=== PATIENT | female | born 2000 | race Caucasian/White ===

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

== ENCOUNTER 2022-01-30 18:58 | Emergency (ER) | payer MEDICAID, SELFPAY ==
--- NOTE | ~2022-01-30 | US_ITS ---
EXAMINATION: US OBSTETRICAL ULTRASOUND CLINICAL INFORMATION: Vaginal bleeding with clots, quantitative hCG 01/30/2022, 1072 COMPARISON: None. LMP: 12/02/2021. Gestational age by maternal dates is 8 weeks, 3 days. Estimated date of delivery by maternal dates is 09/08/2022. TECHNIQUE: Multiple 2-D grayscale and Doppler ultrasound images of the pelvis were obtained. FINDINGS: Uterus: Anteverted, mildly retroflexed measuring 7.0 x 3.5 x 4.6 cm. Somewhat arcuate appearance. The endometrial stripe measures up to 0.6 cm at the level the body with homogeneous echotexture and no focal abnormality. No intrauterine gestation is identified. The cervix is closed measuring up to 3.0 cm in length without focal abnormality. Mild to moderate free fluid in the cul-de-sac. Right ovary: 3.4 x 2.5 x 2.0 cm. Several small anechoic follicles are seen. No right adnexal abnormality. Left ovary: 3.5 x 2.4 x 2.5 cm with a volume of 11 mL multiple small anechoic follicles are seen. Color Doppler showed no abnormal vascular flow. In the left adnexa between the uterus and left ovary is an ovoid homogeneous echogenic focus measuring approximately 1.4 x 1.1 x 1.2 cm. No central gestational sac is identified. Color Doppler showed no associated internal hypervascularity. US/US OB pelvic and transvaginal IMPRESSION: 1. No intrauterine gestation identified. No products of conception or hemorrhage is seen within the endometrium or cervix. 2. Small homogeneous echogenic focus in the left adnexa is nonspecific. No associated central gestational sac or hypervascularity is seen making early ectopic gestation less likely, but not completely excluded given the beta-hCG levels and lack of intrauterine gestation. Continued monitoring of beta-hCG levels is recommended along with short-term repeat pelvic ultrasound as recommended to assess for change.
[2022-01-30 19:02] VITALS: BP 126/73; PULSE 80; RESP 18; TEMP 37.3; O2SAT 100; BMI 22.6
[2022-01-30 19:21] LABS: Basophils Percent Auto 0.2 % (0-2); Eosinophils Percent Auto 0.2 % (0-4); Hematocrit 35.2 % (37.0-47.0); Hemoglobin 11.1 g/dl (12.0-16.0); Imm Gran Abs Auto 0.04 X10*3/uL (0.00-0.03); Imm Gran Pct Auto 0.3 % (0.0-0.4); Lymphocytes Absolute Auto 2.1 X10*3/uL (1.2-4.9); Lymphocytes Percent Auto 16.4 % (20-40); MANUAL DIFF FLAG NO; Mean Corpuscular HGB Conc 31.5 g/dl (31.0-35.0); Mean Corpuscular Hemoglobin 24.9 pg (27.0-33.0); Mean Corpuscular Volume 79.1 fL (80.0-98.0); Monocytes Absolute Auto 0.4 X10*3/uL (0.1-1.2); Monocytes Percent Auto 2.9 % (2-11); Neutrophils Absolute Auto 10.1 x10*3/uL (2.0-8.3); Platelet Count 252 X10*3/uL (160-400); Red Blood Count 4.45 X10*6/uL (4.20-5.50); Red Cell Distribution Width 16.5 % (11.0-16.0); White Blood Count 12.6 X10*3/uL (4.8-10.8)
[2022-01-30 19:44] LABS: HCG Quantitative 1072 mIU/mL
[2022-01-30 19:46] LABS: Appearance Urine Clear; Color Urine Yellow; Glucose Urine UA 100 mg/dL (Negative); Leukocyte Esterase Urine Negative (Negative); Nitrite Urine Negative (Negative); PH 7.5 (5.0-9.0); UMIC TRIGGER UA YES; Urine Blood Small (1+) (Negative); Urine Ketones Negative (Negative); Urine Protein Negative (Neg-Trace)
[2022-01-30 19:50] LABS: UPreg QC Valid YES; Urine Pregnancy POSITIVE (NEGATIVE)
[2022-01-30 20:01] LABS: Bacteria Urine Trace (None Seen); Hyaline Casts Urine 0-2 /LPF (0-2); RBC Urine 0-2 /HPF (0-2); WBC Urine 0-5 /HPF (0-5)
[2022-01-30 22:25] LABS: INTERNATIONAL NORM RATIO 1.1 (0.9-1.1); Prothrombin Time 13.2 SEC (10.0-13.1)
[2022-01-30 22:36] LABS: Alanine Aminotransferase 11 U/L (0-31); Albumin Level 4.5 g/dL (3.5-5.0); Alkaline Phosphatase 63 U/L (39-117); Anion Gap 16 (12-20); Aspartate Amino Transferase 14 U/L (5-31); Bilirubin Total 0.3 mg/dL (0.0-1.0); Blood Urea Nitrogen 10 mg/dL (9-16); Calcium 9.5 mg/dL (8.4-10.2); Carbon Dioxide 23 mmol/L (22-29); Chloride 106 mmol/L (96-108); Creatinine Clr Calc Pharmacy 105.7; Estimated Glomerular Filt Rate > 60; Glucose Random 92 mg/dL (60-115); Potassium 4.2 mmol/L (3.3-5.1); Sodium 141 mmol/L (135-145); Total Protein 7.9 g/dL (6.5-8.0)
--- NOTE | 2022-01-30 23:19 | PC.NURSE ---
BIANCA upgraded from a 3 to a 2 per PA reports of ectopic confirmed on US. Pt brought back from waiting room.
--- NOTE | 2022-01-30 23:34 | ED.GENADULT ---
HPI - General Adult General Chief complaint: Vaginal Bleeding Stated complaint: loss of , bleeding. 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 Patient was seen recently in different hospital and she was told she miscarriaging, patient stated that her vaginal bleeding is fluctuating from light to heavy bleeding with severe pelvic pain that started today, patient declined any history of STD. No history of ectopic . No care for this yet. Related Data Previous Rx's Medication Instructions Recorded clotrimazole 1 % topical cream 1 applic topical BID tinea 4 weeks 03/07/20 #30 grams Allergies Allergy/AdvReac Type Severity Reaction Status Date / Time ampicillin [AMPICILLIN] Allergy Unknown UNKNOWN Verified 03/07/20 19:17 Review of Systems Review of Systems: All other systems are reviewed and are negative Constitutional: Reports as per HPI and Reports no additional constitutional complaints Eyes: Reports as per HPI and Reports no additional eye complaints Reports system reviewed and no additional complaints, except as documented Cardiovascular: Reports as per HPI and Reports no additional cardiovascular complaints Respiratory: Reports as per HPI and Reports no additional respiratory complaints Gastrointestinal: Reports as per HPI and Reports no additional gastrointestinal complaints Genitourinary: Reports no additional female genitourinary complaints Musculoskeletal: Reports no additional musculoskeletal complaints Skin/Breast: Reports system reviewed and no additional complaints, except as docu Psychiatric: Reports no additional psychiatric complaints Endocrine: Reports no additional endocrine complaints Hematologic/Lymphatic: Reports no additional hematologic/lymphatic complaints Allergic/Immunologic: Reports no additional allergic/immunologic complaints Reports system reviewed and no additional complaints, except as documented and Reports Abnormal speech present [facility] Past Medical History Medical History Asthma Social History Social History Alcohol intake: never Advance Directives: No Advance Directives Information Provided: No Physical Exam ED Vital Signs: Vital Signs - 24 hr 01/30/22 19:02 01/31/22 00:33 Temperature 99.1 F 98.4 F Pulse Rate 80 88 Respiratory Rate 18 18 Blood Pressure 126/73 116/63 Pulse Oximetry 100 100 Oxygen Delivery Method Room Air Room Air BMI result Body Mass Index 22.6 Vital signs have been reviewed as appeared to be correct. Blood pressure normal. Heart rate normal. Respiration rate normal. Temperature normal. Oxygen saturation normal. Appearance: Alert. Oriented X3. No acute distress. Head: Normal external exam. Normocephalic. Atraumatic. No Martinez signs noted. No raccoon eyes noted Eyes: PERRLA. EOMI. Conjunctiva and sclera normal. Eyelids normal. ENT: TM's Normal. Pharynx normal. Uvula midline. Moist mucous membranes. No trismus noted. No drooling noted. No muffled voice noted. Neck: Normal inspection. Neck supple. FROM. No adenopathy. Thyroid Normal. No meningeal signs. No neck mass noted. CVS: Normal heart rate and rhythm. Heart sound normal. No murmurs noted. Pulses normal throughout. Respiratory: No respiratory distress. Painless inspiration. Breath sounds normal. No wheezes/rales/rhonchi noted. Chest nontender. No accessory muscle usage noted or decreased air movement noted. Abdomen: Soft and nontender. Bowel sounds normal in all 4 quadrants. No distention noted. No organomegaly noted. No visible injury noted. Pelvic exam: Deferred for Dr. Garcia Back: No CVA tenderness. Full range of motion noted. Skin: Skin warm and dry. Normal skin color. Normal skin turgor. No rashes/lesions/lacerations noted. Extremities: No lower extremity edema. Extremities exhibit normal range of motion. Extremities nontender. Neuro: Oriented X 3. Cranial nerve exam: II-XII are grossly intact No motor deficit. No sensory deficit. Reflexes normal. Course Course Course Narrative: 21-year-old female about 6 weeks evaluated for vaginal bleeding and pelvic pain, low HCG ultrasound showed no IUP with a vascular left adnexal mass which raised the suspicion of ectopic the case discussed with Dr. Garcia who examined the patient. Patient will follow-up with Dr. Garcia in 2 days for repeat hCG and repeat ultrasound as per Dr. Garcia. Patient is O positive blood type. Medical Decision Making Lab Data Lab results reviewed: Yes I reviewed the patient's lab results. Result diagrams: 01/30/22 19:15 01/30/22 22:11 Labs: Lab Results 01/30/22 01/30/22 01/30/22 Range/Units 19:15 19:15 19:15 WBC 12.6 H (4.8-10.8) X10*3/uL RBC 4.45 (4.20-5.50) X10*6/uL Hgb 11.1 L (12.0-16.0) g/dl Hct 35.2 L (37.0-47.0) % MCV 79.1 L (80.0-98.0) fL MCH 24.9 L (27.0-33.0) pg MCHC 31.5 (31.0-35.0) g/dl RDW 16.5 H (11.0-16.0) % Plt Count 252 (160-400) X10*3/uL MPV 10.0 (9.4-12.3) fL Immature Gran % (Auto) 0.3 (0.0-0.4) % Neut % (Auto) 80.0 H (45-73) % Lymph % (Auto) 16.4 L (20-40) % [place] % (Auto) 2.9 (2-11) % Eos % (Auto) 0.2 (0-4) % Baso % (Auto) 0.2 (0-2) % Lymph # (Auto) 2.1 (1.2-4.9) X10*3/uL [place] # (Auto) 0.4 (0.1-1.2) X10*3/uL Eos # (Auto) 0.0 (0.0-0.4) X10*3/uL Baso # (Auto) 0.0 (0.0-0.2) X10*3/uL Abs Immat Gran (auto) 0.04 H (0.00-0.03) X10*3/uL Absolute Neuts (auto) 10.1 H (2.0-8.3) x10*3/uL Absolute Nucleated RBC 0.000 (0.0-0.012) X10*3/uL Nucleated RBC % (auto) 0.0 (0.0-0.2) /100WBC PT (10.0-13.1) SEC INR (0.9-1.1) Sodium (135-145) mmol/L Potassium (3.3-5.1) mmol/L Chloride (96-108) mmol/L Carbon Dioxide (22-29) mmol/L Anion Gap (12-20) BUN (9-16) mg/dL Creatinine (0.5-1.4) mg/dL Estim Creat Clear Calc Estimated GFR Random Glucose (60-115) mg/dL Calcium (8.4-10.2) mg/dL Total Bilirubin (0.0-1.0) mg/dL AST (5-31) U/L ALT (0-31) U/L Alkaline Phosphatase (39-117) U/L Total Protein (6.5-8.0) g/dL Albumin (3.5-5.0) g/dL Beta HCG, Quant 1072 mIU/mL Urine Color Urine Appearance Urine pH (5.0-9.0) Ur Specific [place] (1.005-1.025) Urine Protein (Neg-Trace) mg/dL Urine Glucose (UA) (Negative) mg/dL Urine Ketones (Negative) mg/dL Urine Blood (Negative) Urine Nitrite (Negative) Ur Leukocyte Esterase (Negative) Urine RBC (0-2) /HPF Urine WBC (0-5) /HPF Ur Squamous Epith Cells (0-2) /HPF Urine Bacteria (None Seen) Hyaline Casts (0-2) /LPF Urine Test (NEGATIVE) Blood Type O Positive 01/30/22 01/30/22 01/30/22 Range/Units 19:21 19:21 22:11 WBC (4.8-10.8) X10*3/uL RBC (4.20-5.50) X10*6/uL Hgb (12.0-16.0) g/dl Hct (37.0-47.0) % MCV (80.0-98.0) fL MCH (27.0-33.0) pg MCHC (31.0-35.0) g/dl RDW (11.0-16.0) % Plt Count (160-400) X10*3/uL MPV (9.4-12.3) fL Immature Gran % (Auto) (0.0-0.4) % Neut % (Auto) (45-73) % Lymph % (Auto) (20-40) % [place] % (Auto) (2-11) % Eos % (Auto) (0-4) % Baso % (Auto) (0-2) % Lymph # (Auto) (1.2-4.9) X10*3/uL [place] # (Auto) (0.1-1.2) X10*3/uL Eos # (Auto) (0.0-0.4) X10*3/uL Baso # (Auto) (0.0-0.2) X10*3/uL Abs Immat Gran (auto) (0.00-0.03) X10*3/uL Absolute Neuts (auto) (2.0-8.3) x10*3/uL Absolute Nucleated RBC (0.0-0.012) X10*3/uL Nucleated RBC % (auto) (0.0-0.2) /100WBC PT 13.2 H (10.0-13.1) SEC INR 1.1 (0.9-1.1) Sodium (135-145) mmol/L Potassium (3.3-5.1) mmol/L Chloride (96-108) mmol/L Carbon Dioxide (22-29) mmol/L Anion Gap (12-20) BUN (9-16) mg/dL Creatinine (0.5-1.4) mg/dL Estim Creat Clear Calc Estimated GFR Random Glucose (60-115) mg/dL Calcium (8.4-10.2) mg/dL Total Bilirubin (0.0-1.0) mg/dL AST (5-31) U/L ALT (0-31) U/L Alkaline Phosphatase (39-117) U/L Total Protein (6.5-8.0) g/dL Albumin (3.5-5.0) g/dL Beta HCG, Quant mIU/mL Urine Color Yellow Urine Appearance Clear Urine pH 7.5 (5.0-9.0) Ur Specific [place] 1.010 (1.005-1.025) Urine Protein Negative (Neg-Trace) mg/dL Urine Glucose (UA) 100 H (Negative) mg/dL Urine Ketones Negative (Negative) mg/dL Urine Blood Small (1+) H (Negative) Urine Nitrite Negative (Negative) Ur Leukocyte Esterase Negative (Negative) Urine RBC 0-2 (0-2) /HPF Urine WBC 0-5 (0-5) /HPF Ur Squamous Epith Cells 3-5 (0-2) /HPF Urine Bacteria Trace (None Seen) Hyaline Casts 0-2 (0-2) /LPF Urine Test POSITIVE H (NEGATIVE) Blood Type 01/30/22 Range/Units 22:11 WBC (4.8-10.8) X10*3/uL RBC (4.20-5.50) X10*6/uL Hgb (12.0-16.0) g/dl Hct (37.0-47.0) % MCV (80.0-98.0) fL MCH (27.0-33.0) pg MCHC (31.0-35.0) g/dl RDW (11.0-16.0) % Plt Count (160-400) X10*3/uL MPV (9.4-12.3) fL Immature Gran % (Auto) (0.0-0.4) % Neut % (Auto) (45-73) % Lymph % (Auto) (20-40) % [place] % (Auto) (2-11) % Eos % (Auto) (0-4) % Baso % (Auto) (0-2) % Lymph # (Auto) (1.2-4.9) X10*3/uL [place] # (Auto) (0.1-1.2) X10*3/uL Eos # (Auto) (0.0-0.4) X10*3/uL Baso # (Auto) (0.0-0.2) X10*3/uL Abs Immat Gran (auto) (0.00-0.03) X10*3/uL Absolute Neuts (auto) (2.0-8.3) x10*3/uL Absolute Nucleated RBC (0.0-0.012) X10*3/uL Nucleated RBC % (auto) (0.0-0.2) /100WBC PT (10.0-13.1) SEC INR (0.9-1.1) Sodium 141 (135-145) mmol/L Potassium 4.2 (3.3-5.1) mmol/L Chloride 106 (96-108) mmol/L Carbon Dioxide 23 (22-29) mmol/L Anion Gap 16 (12-20) BUN 10 (9-16) mg/dL Creatinine 0.77 (0.5-1.4) mg/dL Estim Creat Clear Calc 105.7 Estimated GFR > 60 Random Glucose 92 (60-115) mg/dL Calcium 9.5 (8.4-10.2) mg/dL Total Bilirubin 0.3 (0.0-1.0) mg/dL AST 14 (5-31) U/L ALT 11 (0-31) U/L Alkaline Phosphatase 63 (39-117) U/L Total Protein 7.9 (6.5-8.0) g/dL Albumin 4.5 (3.5-5.0) g/dL Beta HCG, Quant mIU/mL Urine Color Urine Appearance Urine pH (5.0-9.0) Ur Specific [place] (1.005-1.025) Urine Protein (Neg-Trace) mg/dL Urine Glucose (UA) (Negative) mg/dL Urine Ketones (Negative) mg/dL Urine Blood (Negative) Urine Nitrite (Negative) Ur Leukocyte Esterase (Negative) Urine RBC (0-2) /HPF Urine WBC (0-5) /HPF Ur Squamous Epith Cells (0-2) /HPF Urine Bacteria (None Seen) Hyaline Casts (0-2) /LPF Urine Test (NEGATIVE) Blood Type Imaging Data pelvic us: Attestation: I personally reviewed and interpreted this imaging study as follows: Radiologist's impression: 1. No intrauterine gestation identified. No products of conception or hemorrhage is seen within the endometrium or cervix. 2. Small homogeneous echogenic focus in the left adnexa is nonspecific. No associated central gestational sac or hypervascularity is seen making early ectopic gestation less likely, but not completely excluded given the beta-hCG levels and lack of intrauterine gestation. Continued monitoring of beta-hCG levels is recommended along with short-term repeat pelvic ultrasound as recommended to assess for change. Discharge Plan Discharge Clinical Impression: Vaginal bleeding, Threatened Patient Disposition: Home, Self-Care Instructions: Threatened Miscarriage (ED) Prescriptions: No Action clotrimazole 1 % cream 1 applic topical BID 28 Days Qty: 30 0RF Referrals: Jared Garcia MD [Physician] -
[2022-01-31 00:33] VITALS: BP 116/63; PULSE 88; RESP 18; TEMP 36.9; O2SAT 100
--- NOTE | 2022-01-31 00:44 | PM.GYNCN ---
RETAIL LEASING AGENT - CN: HPI Data of Consult Consult date: 01/31/22 Primary Care Provider: None Physician Consult Narrative Narrative: I was consulted on Claudia Jama who is a 21 year old female , LMP on 12/03/2021 had a positive test on 01/03/2022, the patient started bleeding/spotting, went to the emergency room at [facility] on 01/15 hCG was drawn an ultrasound according to patient did not show an intrauterine . The bleeding slowed down till 2 days ago when the patient restarted her vaginal bleeding and pelvic cramping. No other associated symptoms. 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 - Review of Systems Review of Systems ROS Unobtainable: All systems reviewed & are unremarkable except as noted in HPI and below Cardiovascular: Denies Palpatations, Loss of consciousness or Chest pain Respiratory: Denies Cough, Wheezing or Shortness of breath Musculoskeletal: Denies Low back pain Gastrointestinal: Denies Heartburn, Constipation, Diarrhea, Nausea or Vomiting Genitourinary: Denies Pain with urination, Burning with urination or Urinary frequency Neurological: Denies Migranes Psychological: Denies Depression OB PMFSH Past Medical History Medical History Asthma Social History Social History Alcohol intake: never Advance Directives: No Advance Directives Information Provided: No Meds Allergies Allergy/AdvReac Type Severity Reaction Status Date / Time ampicillin [AMPICILLIN] Allergy Unknown UNKNOWN Verified 03/07/20 19:17 RETAIL LEASING AGENT Physical Exam Vitals Vital signs: Temp Pulse Resp BP Pulse Ox O2 Del Method 98.4 F 88 18 116/63 100 01/31/22 00:33 01/31/22 00:33 01/31/22 00:33 01/31/22 00:33 01/31/22 00:33 01/31/22 00:33 BMI result Body Mass Index 22.6 Constitutional General Appearance: Healthy appearing, Well-nourished and Well-developed Psychiatric Mood and Affect: active and alert, normal mood and normal affect Skin Appearance: No rashes and No lesions Lungs Respiratory Effort: No intercostal retractions Auscultation: Clear to auscultation Cardiovascular Auscultation: RRR Abdomen Auscultation/Inspection/Palpation: Normal bowel sounds, Soft, Non-distended and No tenderness Female Genitalia (Pelvic) Bladder/Urethra: Normal meatus Vulva: No lesions Vagina: Nontender Cervix: Grossly normal and No cervical motion tenderness Uterus: Normal size and Nontender Adnexa/Parametria: Adnexal Tenderness: None, Adnexal Mass: None, Parametrial Tenderness: None and Parametrial Mass: None Additional Comments: No blood per vagina, closed cervix RETAIL LEASING AGENT - Results Labs CBC & Chem 7: 01/30/22 19:15 01/30/22 22:11 Labs: Short CBC 01/30/22 Range/Units 19:15 WBC 12.6 H (4.8-10.8) X10*3/uL Hgb 11.1 L (12.0-16.0) g/dl Hct 35.2 L (37.0-47.0) % Plt Count 252 (160-400) X10*3/uL BMP 01/30/22 22:11 Sodium 141 Potassium 4.2 Chloride 106 Carbon Dioxide 23 BUN 10 Creatinine 0.77 Calcium 9.5 Liver Function 01/30/22 Range/Units 22:11 Total Bilirubin 0.3 (0.0-1.0) mg/dL AST 14 (5-31) U/L ALT 11 (0-31) U/L Alkaline Phosphatase 63 (39-117) U/L Albumin 4.5 (3.5-5.0) g/dL Urine 01/30/22 01/30/22 Range/Units 19:21 19:21 Urine Color Yellow Urine Appearance Clear Urine pH 7.5 (5.0-9.0) Ur Specific [place] 1.010 (1.005-1.025) Urine Protein Negative (Neg-Trace) mg/dL Urine Glucose (UA) 100 H (Negative) mg/dL Urine Test POSITIVE H (NEGATIVE) Imaging US - abdomen: Radiologist's impression: ITS Impressions Pelvic/Transvag US 01/30/22 21:42 IMPRESSION: 1. No intrauterine gestation identified. No products of conception or hemorrhage is seen within the endometrium or cervix. 2. Small homogeneous echogenic focus in the left adnexa is nonspecific. No associated central gestational sac or hypervascularity is seen making early ectopic gestation less likely, but not completely excluded given the beta-hCG levels and lack of intrauterine gestation. Continued monitoring of beta-hCG levels is recommended along with short-term repeat pelvic ultrasound as recommended to assess for change. Assessment and Plan (1) Early stage of : Status: Acute Plan GC/CT, BV panel and Trichomonas collected. Discussed with the patient the HCG level is below the discriminatory zone of 3500, below which intrauterine by ultrasound cannot be identified, in addition discussed with the patient the finding on ultrasound showing no IUP and left adnexal echogenic focus, ectopic could not be ruled out. The differential diagnosis discussed with the patient included either early ectopic , early SAB or normal intrauterine gestation. Options of treatment were discussed with the patient includin- Expected management for the coming 48 hours and repeat HCG with or without pelvic Ultrasound. 2- Treat as if she has tubal with methotrexate or 3- Uterine aspiration. All the pros and cons and risks and benefits of each treatment approach were discussed with the patient. 1-The advantage of expectant management were discussed with the patient, being prevention of possible exposure to teratogenicity or risk of spontaneous in case of an early normal , the risk being delayed diagnosis and treatment of ectopic and possible rupture with all its possible consequences including intra-abdominal bleed and possible . 2- Explained to the patient that the use of curettage as a diagnostic tool is limited by the potential for disruption of a viable . In addition, discussed with the patient that the sensitivity of curettage in finding chorionic villi is only 70 percent. Pipelle endometrial biopsy is even less sensitive than curettage for detection of villi; sensitivities reported is between 30 and 60 percent. If curettage is performed, serum HCG levels can be followed postcurettage if histopathology does not confirm the clinical impression. When an IUP has been evacuated, hCG levels should drop by at least 15 percent the day after evacuation. There might be an advantage of performing aspiration only on patients with both an HCG concentration below the discriminatory zone and a low doubling rate, since 30 percent of these patients have a nonviable intrauterine gestation, and the remainder have an ectopic . Knowing the results of aspiration avoids unnecessary methotrexate treatment of the 30 percent of patients without ectopic . 3-Furthermore discussed with the patient the 3rd option which is treatment with methotrexate without uterine aspiration. The advantage of early treatment of presumed tubal with methotrexate was discussed with the patient, including but not limited to reducing the risk of ruptured ectopic with all its potential consequences, in addition discussed with the patient methotrexate treatment risks including but not limited to, possible exposure to methotrexate to a normal intra and and increase the risk of spontaneous and congenital anomalies. The patient decided to wait 48 hours repeat HCG and treat accordingly. Instructions given to the patient to the importance of compliance and timely HCG follow-up in 48 hours for an early and accurate diagnosis, and to call or go to the emergency room if pain or vaginal bleeding occurs, all questions answered, the patient verbalized understanding and agreed with the plan. Follow-up in 48 hours for further management. 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 This note was generated with a voice recognition program. Some errors may have been overlooked during the review of this note. Sometimes these errors may affect the content or meaning of a given sentence.
[2022-01-31 01:28] VITALS: BP 110/69; PULSE 82; RESP 16; TEMP 36.7; O2SAT 98
[2022-01-31 10:16] LABS: BV Int Neg Control Negative (Negative); BV Int Pos Control Positive (Positive)
[2022-01-31 11:35] LABS: CT PCR INVALID (Not Detect.); NG PCR INVALID (Not Detect.)
--- NOTE | 2022-01-31 11:38 | PC.NURSE ---
lab called stating the pts CTNG needs to be recollected, pt has been discharged prior to this phone call.
== END 2022-01-31 01:29 | disposition home or self-care (01) ==
PROVIDERS: Physician Assistant Medical; Emergency Provider Emergency Medicine
DX: O20.0 Threatened abortion (principal); Z3A.08 8 weeks gestation of pregnancy
CPT/HCPCS: 36415; 76801; 76817; 80053; 81001; 81025; 84702; 85025; 85610; 86900; 86901; 87480; 87491; 87510; 87591; 87660; 99284

== ENCOUNTER 2022-02-01 12:51 | Outpatient (REF) | payer MEDICAID, SELFPAY ==
[2022-02-01 13:45] LABS: HCG Quantitative 953 mIU/mL
== END 2022-02-01 12:52 | disposition home or self-care (01) ==
LOC: HO.LAB 12:51
PROVIDERS: Visit Provider Obstetrics & Gynecology
DX: O00.90 Unspecified ectopic pregnancy without intrauterine pregnancy (principal)
CPT/HCPCS: 36415; 76801; 76817; 84702; 99212

== ENCOUNTER 2022-02-01 14:26 | Outpatient (REF) | payer MEDICAID, SELFPAY ==
--- NOTE | ~2022-02-01 | US_ITS ---
EXAMINATION: US OBSTETRICAL ULTRASOUND CLINICAL INFORMATION: Vaginal bleeding. Question ectopic on previous exam COMPARISON: Previous OB ultrasound 01/30/2022 LMP: 12/02/2021. Gestational age by maternal dates is 8 weeks 6 days. Estimated date of delivery by maternal dates is 09/08/2021. TECHNIQUE: Transabdominal and transvaginal first trimester OB ultrasound. Transvaginal exam was performed for better visualization of the uterus and ovaries. FINDINGS: The uterus is normal in size and shape and measures 7.8 x 3.6 x 5 cm in dimension. Endometrial thickness measures 5 mm. No intrauterine is seen. No focal uterine lesion. There are nabothian cysts in the cervix. The right ovary is normal and measures 3.1 x 1.7 x 2.4 cm. The left ovary is normal and measures 4.1 x 1.9 x 2.6 cm. There is a solid appearing echogenic area seen in the left adnexa in between the left ovary and uterus. This measures 2.1 x 1.2 x 1.2 cm. This is similar appearing to 01/30/2022 exam and possibly minimally increased in size when this area measured 1.8 x 1.1 x 1.2 cm. Appearance is concerning for ectopic . There is no fluid in the pelvis. US/US OB pelvic and transvaginal IMPRESSION: No intrauterine seen. 2.1 x 1.2 x 1.2 cm solid echogenic left adnexal lesion in between the left ovary and uterus minimally increased in size from previous exam questionable for ectopic .
== END 2022-02-01 14:27 | disposition home or self-care (01) ==
LOC: HO.US 14:26
PROVIDERS: Visit Provider Obstetrics & Gynecology
DX: O00.90 Unspecified ectopic pregnancy without intrauterine pregnancy (principal)
CPT/HCPCS: 76801; 76817

== ENCOUNTER 2022-02-01 17:25 | Emergency (ER) | payer MEDICAID, SELFPAY ==
[2022-02-01 17:28] VITALS: BP 128/68; PULSE 88; RESP 16; TEMP 36.3; O2SAT 99; BMI 22.6
--- NOTE | 2022-02-01 17:34 | ED.GENADULT ---
HPI - General Adult General Chief complaint: General Medical Stated complaint: ectopic Time Seen by Provider: 02/01/22 17:30 Source: patient Mode of arrival: ambulatory History of Present Illness HPI narrative: 21-year-old female LMP 12/03/2021 with a positive test on 01/03/2022, presenting to ED sent in by Dr. Garcia for ectopic noted on US today. HCG was 1072 on 01/30 s/p ED visit for vaginal bleeding/pelvic cramping, today's repeat HCG dropped to 953 thus was sent to the ED for Methotrexate which patient signed consent for with Dr. Garcia. Repeat ultrasound today showing no intrauterine and solid echogenic left adnexal lesion questionable for ectopic Patient reports some abdominal discomfort & vaginal spotting that has been ongoing/unchanged. Denies vaginal discharge, nausea, vomiting, flank pain, dysuria/hematuria Onset (ago): day(s) Related Data Previous Rx's Medication Instructions Recorded metronidazole 0.75 % topical cream 1 appl topical BEDTIME 5 days #45 01/31/22 grams Allergies Allergy/AdvReac Type Severity Reaction Status Date / Time ampicillin [AMPICILLIN] Allergy Unknown UNKNOWN Verified 02/01/22 13:33 Review of Systems Review of Systems: Constitutional: No Fever, No Chills, No Fatigue, No Malaise ENT/Mouth: No Ear Pain, No Nasal Congestion, No sore throat, No Rhinorrhea, No Swallowing Difficulty Eyes: No Eye Pain, No Swelling, No Vision Changes Cardiovascular: No Chest Pain, No SOB, No Palpitations Respiratory: No Cough, No Sputum, No Dyspnea Gastrointestinal: No Nausea, No Vomiting, No Diarrhea, No Constipation, + Abdominal pain Genitourinary: + irregular bleeding, No Dysuria, No Urinary Frequency, No Hematuria, No Flank Pain, No Urinary Flow Changes, No Hesitancy Musculoskeletal: No joint pain, No Myalgias, No Joint Swelling Skin: No Skin Lesions, No rash Neuro: No Weakness, No Loss of Consciousness, No Dizziness, No Headache Yes all other systems are reviewed and are negative Constitutional: Constitutional: Reports as per [facility] Past Medical History Attestation statement: The following information was validated with the patient. Medical History Asthma Social History Social History Alcohol intake: never Patient Tobacco Use Status: Never used Tobacco Use of substances other than those prescribed or required for medical reasons: No Substance Use Type: Marijuana Advance Directives: No Advance Directives Information Provided: No Physical Exam ED Vital Signs: Vital Signs - 24 hr 02/01/22 17:28 02/01/22 18:13 Temperature 97.3 F 98.4 F Pulse Rate 88 84 Respiratory Rate 16 18 Blood Pressure 128/68 113/58 L Pulse Oximetry 99 99 Oxygen Delivery Method Room Air Room Air BMI result Body Mass Index 22.1 Const General: cooperative, healthy appearing and no acute distress Orientation/consciousness: patient oriented x3 Limitations: no limitations HENMT Head: Yes normal to inspection and Yes atraumatic Ears: hearing grossly normal bilaterally General nose exam: Normal external nose present Face and sinus: Yes normal facial exam Eyes General: appearance normal, both eyes and all related structures EOM: EOMs intact bilaterally Neck Neck: Yes normal visual inspection and Yes no meningeal signs Resp Effort & Inspection: normal respiratory effort and no respiratory distress Cardio Rate: regular rate Heart sounds: S1 normal heart sound present and S2 normal heart sound present GI Inspection: Yes normal to inspection Palpation (GI): Soft to palpation, Tenderness to palpation present (GI) suprapubicly (>right); with no rebound tenderness, no guarding and not rigid Other: exam deferred General: Yes no CVA tenderness Back/Spine/Pelvis Back: no CVA tenderness Skin Rashes: no rashes Wounds: no wounds Neuro General: patient oriented x3, tone normal and no meningeal signs Gait exam (Neuro): Normal gait present Extrem General: Yes normal to inspection Course Course Course Narrative: -1830--no leukocytosis. H&H with slight drop from 11.1/35.2 to 10.0/31.0 > as expected with vaginal bleeding/spotting x couple days. Minimal fluid in cul-de-sac on ultrasound today. This was verified with Dr. Garcia who has low suspicion for rupture. Did not recommend serial H/H -labs otherwise unremarkable Results discussed with patient including worrisome signs and symptoms and strict return precautions, and when to return to the emergency department. They verbalized understanding and feel safe for discharge at this time. Medical Decision Making MDM Narrative Medical decision making narrative: 21-year-old female presenting to ED sent in by Dr. Garcia for ectopic noted on US today. On exam vital signs stable, NAD, nontoxic appearing, abdomen soft with mild suprapubic > right tenderness, no rebound or guarding, no CVA tenderness. Case discussed with Dr. Garcia who was in the ED and had patient sign methotrexate consent. Plan: Labs, IM methotrexate Medical Records Medical records reviewed: Yes I reviewed the patient's medical records. Lab Data Lab results reviewed: Yes I reviewed the patient's lab results. Result diagrams: 02/01/22 17:35 02/01/22 17:35 Labs: Lab Results 02/01/22 02/01/22 Range/Units 17:35 17:35 WBC 7.6 (4.8-10.8) X10*3/uL RBC 3.92 L (4.20-5.50) X10*6/uL Hgb 10.0 L (12.0-16.0) g/dl Hct 31.0 L (37.0-47.0) % MCV 79.1 L (80.0-98.0) fL MCH 25.5 L (27.0-33.0) pg MCHC 32.3 (31.0-35.0) g/dl RDW 16.6 H (11.0-16.0) % Plt Count 234 (160-400) X10*3/uL MPV 10.3 (9.4-12.3) fL Immature Gran % (Auto) 0.3 (0.0-0.4) % Neut % (Auto) 64.0 (45-73) % Lymph % (Auto) 25.0 (20-40) % [place] % (Auto) 8.3 (2-11) % Eos % (Auto) 2.0 (0-4) % Baso % (Auto) 0.4 (0-2) % Lymph # (Auto) 1.9 (1.2-4.9) X10*3/uL [place] # (Auto) 0.6 (0.1-1.2) X10*3/uL Eos # (Auto) 0.2 (0.0-0.4) X10*3/uL Baso # (Auto) 0.0 (0.0-0.2) X10*3/uL Abs Immat Gran (auto) 0.02 (0.00-0.03) X10*3/uL Absolute Neuts (auto) 4.9 (2.0-8.3) x10*3/uL Absolute Nucleated RBC 0.000 (0.0-0.012) X10*3/uL Nucleated RBC % (auto) 0.0 (0.0-0.2) /100WBC Sodium 139 (135-145) mmol/L Potassium 4.2 (3.3-5.1) mmol/L Chloride 106 (96-108) mmol/L Carbon Dioxide 20 L (22-29) mmol/L Anion Gap 17 (12-20) BUN 11 (9-16) mg/dL Creatinine 0.71 (0.5-1.4) mg/dL Estim Creat Clear Calc 114.7 Estimated GFR > 60 Random Glucose 91 (60-115) mg/dL Calcium 9.0 (8.4-10.2) mg/dL Total Bilirubin < 0.2 (0.0-1.0) mg/dL Direct Bilirubin < 0.2 (0.0-0.5) mg/dL AST 12 (5-31) U/L ALT 9 (0-31) U/L Alkaline Phosphatase 61 (39-117) U/L Total Protein 7.4 (6.5-8.0) g/dL Albumin 4.2 (3.5-5.0) g/dL Discharge Plan Discharge Clinical Impression: Ectopic Patient Disposition: Home, Self-Care Instructions: Ectopic (DC) Additional Instructions: 1. Common side effects of the medication you were given include: skin rash, sensitivity to the sun, indigestion, nausea, sore mouth were discussed with the patient. Less common side effects (occurring in less than 2% of patients) were also discussed a drop in blood cell counts or temporary elevation in liver enzymes.? 2. NO intercourse or performing strenuous exercises or activities & avoid sun exposure 3. Follow up with HCG day 4 on 02/04 and day 7 on 02/07 and follow with an appointment day 7 Return to the emergency department if you develop abdominal pain, unremitting vaginal bleeding, lightheadedness, or passing-out 1. Los efectos secundarios comunes del medicamento que le dieron incluyen: sarpullido en la piel, sensibilidad al lenore, indigesti?n, n?useas, dolor en la boca que se discutieron con el paciente. Los efectos secundarios menos comunes (que ocurren en menos del 2% de los pacientes) tambi?n se discutieron sal kimberley ca?da en los recuentos de c?lulas sangu?neas o kimberley elevaci?n temporal de las enzimas hep?nati. 2. NO tener relaciones sexuales ni realizar ejercicios o actividades extenuantes y evitar la exposici?n al lenore 3. Seguimiento con HCG el d?a 4 el 02/04 y el d?a 7 el 02/07 y siga con kimberley janet el d?a 7 Regrese a la kasey de emergencias si presenta dolor abdominal, sangrado vaginal continuo, mareos o desmayo Prescriptions: No Action metronidazole 0.75 % cream 1 appl topical BEDTIME 5 Days Qty: 45 0RF Referrals: Jared Garcia MD [Physician] - (on day four, 02/04 & on day seven 02/07) Print Language: [place]
[2022-02-01 17:38] LABS: MANUAL DIFF FLAG NO
[2022-02-01 17:59] LABS: Basophils Percent Auto 0.4 % (0-2); Eosinophils Absolute Auto 0.2 X10*3/uL (0.0-0.4); Imm Gran Abs Auto 0.02 X10*3/uL (0.00-0.03); Imm Gran Pct Auto 0.3 % (0.0-0.4); Lymphocytes Absolute Auto 1.9 X10*3/uL (1.2-4.9); Mean Corpuscular HGB Conc 32.3 g/dl (31.0-35.0); Mean Corpuscular Hemoglobin 25.5 pg (27.0-33.0); Mean Corpuscular Volume 79.1 fL (80.0-98.0); Mean Platelet Volume 10.3 fL (9.4-12.3); Monocytes Absolute Auto 0.6 X10*3/uL (0.1-1.2); Monocytes Percent Auto 8.3 % (2-11); Neutrophils Absolute Auto 4.9 x10*3/uL (2.0-8.3); Platelet Count 234 X10*3/uL (160-400); Red Blood Count 3.92 X10*6/uL (4.20-5.50); Red Cell Distribution Width 16.6 % (11.0-16.0); White Blood Count 7.6 X10*3/uL (4.8-10.8)
[2022-02-01 18:03] LABS: Alanine Aminotransferase 9 U/L (0-31); Albumin Level 4.2 g/dL (3.5-5.0); Alkaline Phosphatase 61 U/L (39-117); Anion Gap 17 (12-20); Aspartate Amino Transferase 12 U/L (5-31); Bilirubin Direct < 0.2 mg/dL (0.0-0.5); Bilirubin Total < 0.2 mg/dL (0.0-1.0); Blood Urea Nitrogen 11 mg/dL (9-16); Carbon Dioxide 20 mmol/L (22-29); Chloride 106 mmol/L (96-108); Creatinine Clr Calc Pharmacy 114.7; Estimated Glomerular Filt Rate > 60; Glucose Random 91 mg/dL (60-115); Potassium 4.2 mmol/L (3.3-5.1); Sodium 139 mmol/L (135-145); Total Protein 7.4 g/dL (6.5-8.0)
[2022-02-01 18:08] VITALS: BMI 22.1
[2022-02-01 18:13] VITALS: BP 113/58; PULSE 84; RESP 18; TEMP 36.9; O2SAT 99
--- OUTSIDE RECORDS SUMMARY | 2022-02-01 18:18 | XMS_ITS | Continuity of Care Document ---
:2000 Author Organization [facility] Address [address] [address]- Care Team Providers Name Role Phone Not on Staff, PCP Primary Care Physician Unavailable Encounter [facility] Date(s): 07/21/20 - 07/28/20 [facility] [address] [id number] Attending Physician: Not on Staff, Attending MD Referring Physician: Debbie Osborne CNM Allergies, Adverse Reactions, Alerts Substance Reaction Severity Status NKA Active Immunizations Given and Recorded Vaccine Date Status Refusal Reason influenza virus vaccine, inactivated 06/13/20 Given Medications Plus Iron oral tablet 1 tablet, By Mouth, Daily, # 30 tablet, 11 Refills, Maintenance, 04/05/20 20:02:00 EST, Tablet, [id number], Partial fill upon patient request if the prescription is for a schedule II opioid drug., 1 tablet By Mouth Daily Start Date: 04/05/20 Status: Ordered Problem List Condition Effective Dates Status Health Status Informant Anemia in (Confirmed) Active Intrauterine in Active teenager(Confirmed) Vital Signs Most recent to oldest [Reference Range]: 1 Height 164 cm (07/21/20 2:18 PM) Social History Social History Type Response Smoking Status Never (less than 100 in life time) entered on: 04/05/20 Sex
--- OUTSIDE RECORDS SUMMARY | 2022-02-01 18:18 | XMS_ITS | Continuity of Care Document ---
:2000 Author [facility] Address Unavailable , Care Team Providers Name Role Phone Not on Staff, PCP Primary Care Physician Unavailable [place] [facility] [place] 11[place]22[place]20 - 12/31/20 [facility] Attending Physician: Not on Staff, Attending MD Referring Physician: Becky Ashley CNM Allergies, Adverse Reactions, Alerts Substance Reaction Severity Status NKA Active Immunizations Given and Recorded Vaccine Date Status Refusal Reason influenza virus vaccine, inactivated 06/13/20 Given Medications ferrous sulfate 325 mg oral tablet 1 tablet = 325 mg, By Mouth, Daily, # 90 tablet, 0 Refills, Maintenance, 10/04/20 9:58:00 EDT, Tablet, [id number], Partial fill upon patient request if the prescription is for a schedule II opioid drug., 164, cm, 10/04/20 9:47:00 EDT,... Start Date: 10/04/20 Status: OrderedPrenatal Plus Iron oral tablet 1 tablet, By Mouth, Daily, # 30 tablet, 11 Refills, Maintenance, 09/20/20 13:23:00 EDT, Tablet, [id number], Partial fill upon patient request if the prescription is for a schedule II opioid drug., 1 tablet By Mouth Daily, 164, cm, 09/01/20 11:... Start Date: 09/20/20 Status: Ordered Problem List Condition Effective Dates Status Health Status Informant Anemia in (Confirmed) Active Intrauterine in Active teenager(Confirmed) Social History Social History Type Response Smoking Status Never (less than 100 in life time) entered on: 04/05/20 Sex
--- OUTSIDE RECORDS SUMMARY | 2022-02-01 18:18 | XMS_ITS | Continuity of Care Document ---
:2000 Author Organization [facility] Address Unavailable , Care Team Providers Name Role Phone Not on Staff, PCP Primary Care Physician Unavailable [facility]counter [facility] Date(s): 02/21/21 - 03/23/[facility] Attending Physician: Dennys Wilkins Admitting Physician: Dennys Wilkins Referring Physician: Dennys Wilkins Allergies, Adverse Reactions, Alerts Substance Reaction Severity Status NKA Active Immunizations Given and Recorded Vaccine Date Status Refusal Reason influenza virus vaccine, inactivated 06/13/20 Given Problem List Condition Effective Dates Status Health Status Informant Anemia in (Confirmed) Active Intrauterine in Active teenager(Confirmed) Social History Social History Type Response Smoking Status Never (less than 100 in life time) entered on: 04/05/20 Sex
--- OUTSIDE RECORDS SUMMARY | 2022-02-01 18:18 | XMS_ITS | Continuity of Care Document ---
:2000 Author Organization [facility] Address [address] [address]- Care Team Providers Name Role Phone Not on Staff, PCP Primary Care Physician Unavailable Encounter [facility] Date(s): 08/26/20 - 09/25/20 [facility] [address] [place] [id number] Allergies, Adverse Reactions, Alerts Substance Reaction Severity Status NKA Active Immunizations Given and Recorded Vaccine Date Status Refusal Reason influenza virus vaccine, inactivated 06/13/20 Given Medications Plus Iron oral tablet 1 tablet, By Mouth, Daily, # 30 tablet, 11 Refills, Maintenance, 09/20/20 13:23:00 EDT, Tablet, [id number], Partial fill upon patient request if [...]
--- OUTSIDE RECORDS SUMMARY | 2022-02-01 18:18 | XMS_ITS | Continuity of Care Document ---
:2000 Author Organization [facility] Address Unavailable , Care Team Providers Name Role Phone Not on Staff, PCP Primary Care Physician Unavailable Encounter [facility] [place] Date(s): 11/22/20 - 01/12/21 [facility] Attending Physician: Shazia Nina CNM Admitting Physician: Shazia Nina CNM Referring Physician: Becky Ashley CNM Allergies, Adverse Reactions, Alerts Substance Reaction Severity Status NKA Active Immunizations Given and Recorded Vaccine Date Status Refusal Reason influenza virus vaccine, inactivated 06/13/20 Given Medications ferrous sulfate 325 mg oral tablet 1 tablet = 325 mg, By Mouth, Daily, # 90 tablet, 0 Refills, Maintenance, 10/04/20 9:58:00 EDT, Tablet, [id number], Partial fill upon patient request if the prescription is for a schedule II opioid drug., 164, cm, 10/04/20 9:47:00 EDT,... Start Date: 10/04/20 Status: OrderedPrenatal Plus Iron oral tablet 1 tablet, By Mouth, Daily, # 30 tablet, 11 Refills, Maintenance, 09/20/20 13:23:00 EDT, Tablet, [facility] #[id number], Partial fill upon patient request if [...]
--- OUTSIDE RECORDS SUMMARY | 2022-02-01 18:18 | XMS_ITS | Continuity of Care Document ---
:2000 Author Organization [facility] Address [address] [address]- Care Team Providers Name Role Phone Not on Staff, PCP Primary Care Physician Unavailable Encounter [facility] [place] Date(s): 09/01/20 - 12/17/20 [facility] [address] [place] [id number] Attending Physician: Not on Staff, Attending MD Admitting Physician: Nadia Martinez MD Referring Physician: Royal ALVARENGA, Dian Sr Allergies, Adverse Reactions, Alerts Substance Reaction Severity Status NKA Active Immunizations Given and Recorded Vaccine Date Status Refusal Reason influenza virus vaccine, inactivated 06/13/20 Given Medications ferrous sulfate 325 mg oral tablet 1 tablet = 325 mg, By Mouth, Daily, # 90 tablet, 0 Refills, Maintenance, 10/04/20 9:58:00 EDT, Tablet, [id number], Partial fill upon patient request if the prescription is for a schedule II opioid drug., 164, cm, 10/04/20 9:47:00 EDT,... Start Date: 10/04/20 Status: OrderedPrenatal Plus Iron oral tablet 1 tablet, By Mouth, Daily, # 30 tablet, 11 Refills, Maintenance, 09/20/20 13:23:00 EDT, Tablet, [facility] #[id number], Partial fill upon patient request if [...]
--- OUTSIDE RECORDS SUMMARY | 2022-02-01 18:18 | XMS_ITS | Continuity of Care Document ---
:2002 Author Organization [facility] Address [address] [place] [address], [address] [place] [id number]- Care Team Providers Name Role Phone Not on Staff, PCP Primary Care Physician Unavailable [place] [facility] [place] 04[place]12[place]20 [facility] [address] [place] [address], [address] [place] [id number] Attending Physician: Nataliia RICO, Sarah Nolan Referring Physician: Larisa Grace DO Allergies, Adverse Reactions, Alerts Substance Reaction Severity Status NKA Active Medications Plus Iron oral tablet 1 tablet, By Mouth, Daily, # 30 tablet, 11 Refills, Maintenance, 04/05/20 20:02:00 EST, Tablet, [id number], Partial fill upon patient request if the prescription is for a schedule II opioid drug., 1 tablet By Mouth Daily Start Date: 04/05/20 Status: Ordered Problem List Condition Effective Dates Status Health Status Informant Asthma(Confirmed) Active Vital Signs Most recent to oldest [Reference Range]: 1 Height 164 cm (04/05/20 6:06 PM) Dry Weight 61.36 kg (04/05/20 6:06 PM) Dry Weight Obtained Via Patient/family stated (04/05/20 6:06 PM) Social History Social History Type Response Smoking Status Never (less than 100 in life time) entered on: 04/05/20 Sex
--- OUTSIDE RECORDS SUMMARY | 2022-02-01 18:18 | XMS_ITS | Continuity of Care Document ---
:2002 Author Organization [facility] Address [address] [place] [address]- Care Team Providers Name Role Phone Not on Staff, PCP Primary Care Physician Unavailable [place] [facility] [place]11/20 - 05/18/20 [facility] [address] [place], [place] [address] Attending Physician: Becky Hopkins MD Referring Physician: Carina Ashley CNM Allergies, Adverse Reactions, Alerts Substance [...] Dates Status Health Status Informant Asthma(Confirmed) Active Social History Social History Type Response Smoking Status Never (less than 100 in life time) entered on: 04/05/20 Sex
--- OUTSIDE RECORDS SUMMARY | 2022-02-01 18:18 | XMS_ITS | Continuity of Care Document ---
:2002 Author Organization [facility] Address [address] [place] [address]- Care Team Providers Name Role Phone Not on Staff, PCP Primary Care Physician Unavailable En[facility] Date(s): 11/11/20 - 11/18/20 [facility] [address] [address] Attending Physician: Becky Hopkins MD Referring Physician: Shazia Nina CNM Allergies, Adverse Reactions, Alerts Substance Reaction Severity Status NKA Active Immunizations Given and Recorded Vaccine Date Status Refusal Reason influenza virus vaccine, inactivated 06/13/20 Given Medications ferrous sulfate 325 mg oral tablet 1 tablet = 325 mg, By Mouth, Daily, # 90 tablet, 0 Refills, Maintenance, 10/04/20 9:58:00 EDT, Tablet, [facility][id number], Partial fill upon patient request if the [...] cm, 09/01/20 11:... Start Date: 09/20/20 Status: OrderedValtrex 1 gm oral tablet 1 tablet = 1 Gm, By Mouth, Daily, for 5 days, # 30 tablet, 1 Refills, Acute 11/20/20 11:38:00 EDT, 11/10/20 11:38:00 EDT, Tablet, [id number], Partial fill upon patient request if the prescription is for a schedule II opioid drug., 164, cm, . Start Date: 11/10/20 Stop Date: 11/20/20 Status: Ordered Problem List Condition Effective Dates Status Health Status Informant Anemia in (Confirmed) Active Intrauterine in Active teenager(Confirmed) Social History Social History Type Response Smoking Status Never (less than 100 in life time) entered on: 04/05/20 Sex
--- OUTSIDE RECORDS SUMMARY | 2022-02-01 18:18 | XMS_ITS | Continuity of Care Document ---
:2002 Author Organization [facility] Address [address] [place] [address], [address] [place] [address]- Care Team Providers Name Role Phone Not on Staff, PCP Primary Care Physician Unavailable [place] [facility] [place]): [place] 12[place]20 [facility] [employer] [address] [address] Attending Physician: Dennys Wilkins Admitting Physician: Dennys Wilkins Referring Physician: AdmtrDennys Allergies, Adverse Reactions, Alerts Substance Reaction Severity Status NKA Active Immunizations Given and Recorded Vaccine Date Status Refusal Reason influenza virus vaccine, inactivated 06/13/20 Given Medications ferrous sulfate 325 mg oral tablet 1 tablet = 325 mg, By Mouth, Daily, # 90 tablet, 0 Refills, Maintenance, 10/04/20 9:58:00 EDT, Tablet, [id number], Partial fill upon patient request if the prescription is for a schedule II opioid drug., 164, cm, 10/04/20 9:47:00 EDT,... Start Date: 10/04/20 Status: OrderedPrenatal Plus Iron oral tablet 1 tablet, By Mouth, Daily, # 30 tablet, 11 Refills, Maintenance, 09/20/20 13:23:00 EDT, Tablet, [facility] #[id number], Partial fill upon patient request if [...]
--- OUTSIDE RECORDS SUMMARY | 2022-02-01 18:18 | XMS_ITS | Continuity of Care Document ---
:2002 Author Organization [facility] Address Unavailable , Care Team Providers Name Role Phone Not on Staff, PCP Primary Care Physician Unavailable [place] [facility] [place] [facility]/22/20 - [facility] Attending Physician: Not on Staff, Attending MD Admitting Physician: Nadia Martinez MD Referring Physician: Becky Ashley CNM Allergies, Adverse Reactions, Alerts Substance Reaction Severity Status NKA Active Immunizations Given and Recorded Vaccine Date Status Refusal Reason influenza virus vaccine, inactivated 06/13/20 Given Medications ferrous sulfate 325 mg oral tablet 1 tablet = 325 mg, By Mouth, Daily, # 90 tablet, 0 Refills, Maintenance, 10/04/20 9:58:00 EDT, Tablet, [facility][id number], Partial fill upon patient request if the [...]
--- OUTSIDE RECORDS SUMMARY | 2022-02-01 18:18 | XMS_ITS | Continuity of Care Document ---
:2002 Author Organization [facility] Address [address] [address]- Care Team Providers Name Role Phone Not on Staff, PCP Primary Care Physician Unavailable [facility] Date(s): 11/03/20 - 12/03/20 [facility] [address] [place] [id number] Allergies, Adverse Reactions, Alerts Substance Reaction Severity Status NKA Active Immunizations Given and Recorded Vaccine Date Status Refusal Reason influenza virus vaccine, inactivated 06/13/20 Given Medications ferrous sulfate 325 mg oral tablet 1 tablet = 325 mg, By Mouth, Daily, # 90 tablet, 0 Refills, Maintenance, 10/04/20 9:58:00 EDT, Tablet, [facility][id number], Partial fill upon patient request if the prescription is for a schedule II opioid drug., 164, cm, 10/04/20 9:47:00 EDT,... Start Date: 10/04/20 Status: OrderedPrenatal Plus Iron oral tablet 1 tablet, By Mouth, Daily, # 30 tablet, 11 Refills, Maintenance, 09/20/20 13:23:00 EDT, Tablet, [facility] #[id number], Partial fill upon patient request [...]
--- OUTSIDE RECORDS SUMMARY | 2022-02-01 18:18 | XMS_ITS | Continuity of Care Document ---
:2002 Author Organization [facility] [employer] [facility] Address [address] [place] [address]- Care Team Providers Name Role Phone Not on Staff, PCP Primary Care Physician Unavailable [place] [facility] [place](s): 11/03/20 - 12/04/20 [facility] [address] [id number] Attending Physician: Shazia Nina CNM Allergies, Adverse Reactions, Alerts Substance Reaction Severity Status NKA Active Immunizations Given and Recorded Vaccine Date Status Refusal Reason influenza virus vaccine, inactivated 06/13/20 Given Medications ferrous sulfate 325 mg oral tablet 1 tablet = 325 mg, By Mouth, Daily, # 90 tablet, 0 Refills, Maintenance, 10/04/20 9:58:00 EDT, Tablet, [facility][id number], Partial fill upon patient request if the prescription is for a schedule II opioid drug., 164, cm, 10/04/20 9:47:00 EDT,... Start Date: 10/04/20 Status: OrderedPrenatal Plus Iron oral tablet 1 tablet, By Mouth, Daily, # 30 tablet, 11 Refills, Maintenance, 09/20/20 13:23:00 EDT, Tablet, [id number], Partial fill upon patient request if [...]
--- OUTSIDE RECORDS SUMMARY | 2022-02-01 18:18 | XMS_ITS | Continuity of Care Document ---
:2002 Author Organization [facility] p Address [address] [place] [address], [address] [place] [address]- Care Team Providers Name Role Phone Not on Staff, PCP Primary Care Physician Unavailable [facility] Date(s): 06/13/20 - 08/07/20 [facility] [employer] [address] [place] [address], [address] [place] [id number] Attending Physician: Debbie Osborne CNM Allergies, Adverse Reactions, [...]
--- OUTSIDE RECORDS SUMMARY | 2022-02-01 18:18 | XMS_ITS | Continuity of Care Document ---
:2002 Author Organization [facility] Address [address] [address]- Care Team Providers Name Role Phone Not on Staff, PCP Primary Care Physician Unavailable [facility]counter [facility] Date(s): 06/13/20 - 08/07/20 [facility] [address] [id number] Attending Physician: Not on Staff, Attending MD [...]
--- OUTSIDE RECORDS SUMMARY | 2022-02-01 18:18 | XMS_ITS | Continuity of Care Document ---
:2002 Author Organization [facility] Address [address] [place] [address]- Care Team Providers Name Role Phone Not on Staff, PCP Primary Care Physician Unavailable [facility]counter [facility] Date(s): 09/22/20 - 09/23/[address] [address] Discharge Disposition: A-D/C Home Attending Physician: Sarah William MD Admitting Physician: Sarah William MD Referring Physician: Sarah William MD Allergies, Adverse Reactions, Alerts Substance Reaction Severity [...] cm, 09/01/20 11:... Start Date: 09/20/20 Status: OrderedTylenol 325 mg oral tablet 975 mg, Tablet, By Mouth, Every 6 hours, PRN for Pain , Moderate, Routine, 09/23/20 0:08:00 EDT Start Date: 09/23/20 Stop Date: 09/23/20 Status: Discontinued Problem List Condition Effective Dates Status Health Status Informant Anemia in (Confirmed) Active Intrauterine in Active teenager(Confirmed) Vital Signs Most recent to oldest 1 2 3 [Reference Range]: Height 164 cm (09/22/20 11:45 PM) Weight 69.5 kg (09/22/20 11:45 PM) Oxygen Saturation [94-100 %] 100 % (09/22/20 11:00 PM) Pulse Rate [55-90 bpm] 91 bpm *H* (09/22/20 11:45 PM) Body Mass Index [18.5-24.99] 25.84 *H* (09/22/20 11:45 PM) Blood Pressure [71-110/30-71 108/58 mm Hg 129/69 mm Hg 111 /62 mm Hg mm Hg] (09/23/20 9:54 AM) *H* *H* (09/22/20 11:45 PM) (09/22/20 11:0 0 PM) Respiratory Rate [16-30 18 br/min 18 br/min br/min] (09/23/20 2:24 AM) (09/22/20 11:45 PM) Temperature [96.8-100.4 97.9 DegF 98.4 DegF 98.2 Deg F DegF] (09/23/20 9:54 AM) (09/22/20 11:45 PM) (09/22/20 11 :00 PM) Blood pressure sites Arm, right (09/22/20 11:45 PM) Temperature Route Oral Oral Oral (09/22/20 11:45 PM) (09/22/20 11:00 PM) (09/22/20 8 :46 PM) Dry Weight 69.5 kg (09/22/20 11:45 PM) Social History Social History Type Response Smoking Status Never (less than 100 in life time) entered on: 04/05/20 Sex
--- OUTSIDE RECORDS SUMMARY | 2022-02-01 18:18 | XMS_ITS | Continuity of Care Document ---
:2002 Author Organization [facility] Address [address] [place] [address]- Care Team Providers Name Role Phone Not on Staff, PCP Primary Care Physician Unavailable [facility] Date(s): 11/18/20 - 11/20/[address] [address] Discharge Disposition: A-D/C Home Attending Physician: Nadia Martinez MD Admitting Physician: Nadia Martinez MD Referring Physician: Nadia Martinez MD Allergies, Adverse Reactions, Alerts Substance Reaction Severity Status NKA Active Immunizations Given and Recorded Vaccine Date Status Refusal Reason influenza virus vaccine, inactivated 06/13/20 Given Medications ferrous sulfate 325 mg oral tablet 1 tablet = 325 mg, By Mouth, Daily, # 90 tablet, 0 Refills, Maintenance, 10/04/20 9:58:00 EDT, Tablet, [facility][id number], Partial fill upon patient request if the prescription is for a schedule II opioid drug., 164, cm, 10/04/20 9:47:00 EDT,... Start Date: 10/04/20 Status: OrderedPrenatal Plus Iron oral tablet 1 tablet, By Mouth, Daily, # 30 tablet, 11 Refills, Maintenance, 09/20/20 13:23:00 EDT, Tablet, [facility] #[id number], Partial fill upon patient request if the prescription is for a schedule II opioid drug., 1 tablet By Mouth Daily, 164, cm, 09/01/20 11:... Start Date: 09/20/20 Status: Ordered Problem List Condition Effective Dates Status Health Status Informant Anemia in (Confirmed) Active Intrauterine in Active teenager(Confirmed) Vital Signs Most recent to oldest 1 2 3 [Reference Range]: Height 164 cm 164 cm 164 cm (11/20/20 8:00 AM) (11/20/20 12:00 AM) (11/19/20 5: 50 PM) Weight 75.6 kg 75.6 kg (11/18/20 12:21 PM) (11/18/20 10:09 AM) Oxygen Saturation [94-100 %] 100 % 99 % 98 % (11/20/20 12:00 AM) (11/19/20 8:00 AM) (11/19/20 4: 31 AM) Pulse Rate [55-90 bpm] 96 bpm 99 bpm 81 bpm *H* *H* (11/19/20 5:50 PM ) (11/20/20 8:00 AM) (11/20/20 12:00 AM) Body Mass Index [18.5-24.99] 28.11 *H* (11/18/20 12:21 PM) Blood Pressure [71-110/30-71 118/69 mm Hg 102/56 mm Hg 114 /68 mm Hg mm Hg] *H* (11/20/20 12:00 AM) *H* (11/20/20 8:00 AM) (11/19/20 5:50 PM) Respiratory Rate [16-30 18 br/min 17 br/min 18 br/mi n br/min] (11/20/20 8:00 AM) (11/20/20 12:00 AM) (11/19/20 5: 50 PM) Temperature [96.8-100.4 98.1 DegF 98.4 DegF 98.4 Deg F DegF] (11/20/20 8:00 AM) (11/20/20 12:00 AM) (11/19/20 5: 50 PM) Mode of Delivery (Oxygen) Room air Room air Room a ir (11/20/20 12:00 AM) (11/19/20 8:00 AM) (11/18/20 10 :20 AM) Blood pressure sites Arm, left Arm, right Arm, right (11/19/20 8:00 AM) (11/18/20 12:21 PM) (11/18/20 10 :20 AM) Temperature Route Oral Oral Oral (11/20/20 8:00 AM) (11/20/20 12:00 AM) (11/19/20 5: 50 PM) Dry Weight 75.6 kg 75.6 kg (11/18/20 12:21 PM) (11/18/20 10:09 AM) Weight Obtained Via Standing scale (11/18/20 10:09 AM) Dry Weight Obtained Via Standing scale (11/18/20 10:09 AM) Social History Social History Type Response Smoking Status Never (less than 100 in life time) entered on: 04/05/20 Sex
--- OUTSIDE RECORDS SUMMARY | 2022-02-01 18:18 | XMS_ITS | Continuity of Care Document ---
:2002 Author Organization [facility] Address [address] [address]- Care Team Providers Name Role Phone Not on Staff, PCP Primary Care Physician Unavailable [facility] Date(s): 07/21/20 - 08/20/20 [facility] [address] [id number] Attending Physician: Denyns Wilkins Admitting Physician: Dennys Wilkins Referring Physician: [...]
--- OUTSIDE RECORDS SUMMARY | 2022-02-01 18:18 | XMS_ITS | Continuity of Care Document ---
:2002 Author Organization [facility] Address [address] [address]- Care Team Providers Name Role Phone Not on Staff, PCP Primary Care Physician Unavailable [facility]counter [facility] Date(s): 09/01/20 - 10/16/20 [facility] [address] [place] [address] Attending Physician: Not on Staff, Attending MD Referring Physician: Royal ALVARENGA, Dian Sr Allergies, Adverse Reactions, Alerts Substance Reaction Severity Status NKA Active Immunizations Given and Recorded Vaccine Date Status Refusal Reason influenza virus vaccine, inactivated 06/13/20 Given Medications ferrous sulfate 325 mg oral tablet 1 tablet = 325 mg, By Mouth, Daily, # 90 tablet, 0 Refills, Maintenance, 10/04/20 9:58:00 EDT, Tablet, [facility][id number], Partial fill upon patient request if the prescription is for a schedule II opioid drug., 164, cm, 10/04/20 9:47:00 EDT,... Start Date: 10/04/20 Status: OrderedPrenatal Plus Iron oral tablet 1 tablet, By Mouth, Daily, # 30 tablet, 11 Refills, Maintenance, 09/20/20 13:23:00 EDT, Tablet, [facility] #[id number], Partial fill upon patient [...]
--- OUTSIDE RECORDS SUMMARY | 2022-02-01 18:18 | XMS_ITS | Continuity of Care Document ---
:2002 Author [facility] Address Unavailable , Care Team Providers Name Role Phone Not on Staff, PCP Primary Care Physician Unavailable [place] [facility] [place] Date(s): 09/02/20 - 12/31/20 [facility] Attending Physician: Not on Staff, Attending [...] 0 Refills, Maintenance, 10/04/20 9:58:00 EDT, Tablet, [facility] #[id number], Partial fill upon patient request if the prescription is for a schedule II opioid drug., 164, cm, 10/04/20 9:47:00 EDT,... Start Date: 10/04/20 Status: OrderedPrenatal Plus Iron oral tablet 1 tablet, By Mouth, Daily, # 30 tablet, 11 Refills, Maintenance, 09/20/20 13:23:00 EDT, Tablet, [facility] #[id number], Partial fill upon patient request [...]
--- OUTSIDE RECORDS SUMMARY | 2022-02-01 18:18 | XMS_ITS | Continuity of Care Document ---
:2002 Author Organization [facility] p Address [address] [place] [address], [address] [place] [address]- Care Team Providers Name Role Phone Not on Staff, PCP Primary Care Physician Unavailable [place] [facility] [place]): [place]/19/20 - 05/26/20 [facility] [address] [facility], [address] [place] [id number] Attending Physician: Michelle RICO, Nadia Nolan Referring Physician: Carina Ashley CNM Allergies, Adverse [...] oldest [Reference Range]: 1 Height 164 cm (05/19/20 10:10 AM) Weight 61.24 kg (05/19/20 10:10 AM) Body Mass Index [18.5-24.99] 22.77 (05/19/20 10:10 AM) Blood Pressure [71-110/30-71 mm Hg] 118/62 mm Hg *H* (05/19/20 10:10 AM) Blood pressure sites Arm, right (05/19/20 10:10 AM) Weight Obtained Via Standing scale (05/19/20 10:10 AM) Social History Social History Type Response Smoking Status Never (less than 100 in life time) entered on: 04/05/20 Sex
--- OUTSIDE RECORDS SUMMARY | 2022-02-01 18:18 | XMS_ITS | Continuity of Care Document ---
:2002 Author Organization [facility] Address [address] [place] [address]- Care Team Providers Name Role Phone Not on Staff, PCP Primary Care Physician Unavailable [place] [facility] [place] 10/18/20 - 11/17/20 [facility] [address] [place] [id number] Attending Physician: Not on Staff, Attending MD Referring Physician: Colette Quintanilla CNM Allergies, Adverse Reactions, Alerts Substance Reaction Severity Status NKA Active Immunizations Given and Recorded Vaccine Date Status Refusal Reason influenza virus vaccine, inactivated 06/13/20 Given Medications ferrous sulfate 325 mg oral tablet 1 tablet = 325 mg, By Mouth, Daily, # 90 tablet, 0 Refills, Maintenance, 10/04/20 9:58:00 EDT, Tablet, [facility][id number], Partial fill upon patient request if the prescription is for a schedule II opioid drug., 164, cm, 10/04/20 9:47:00 EDT,... Start Date: 10/04/20 Status: OrderedPrenatal Plus Iron oral tablet 1 tablet, By Mouth, Daily, # 30 tablet, 11 Refills, Maintenance, 09/20/20 13:23:00 EDT, Tablet, [facility]acy #[id number], Partial fill upon patient request if [...]
--- OUTSIDE RECORDS SUMMARY | 2022-02-01 18:18 | XMS_ITS | Continuity of Care Document ---
:2002 Author Organization [facility] Address [address] [address] Care Team Providers Name Role Phone Not on Staff, PCP Primary Care Physician Unavailable Encounter [facility] Date(s): 09/01/20 - 10/29/20 [facility] [address] [place] [address] Attending Physician: Not on Staff, Attending MD Referring Physician: Royal ALVARENGA, Dian Sr Allergies, Adverse Reactions, Alerts Substance Reaction Severity Status NKA Active Immunizations Given and Recorded Vaccine Date Status Refusal Reason influenza virus vaccine, inactivated 06/13/20 Given Medications ferrous sulfate 325 mg oral tablet 1 tablet = 325 mg, By Mouth, Daily, # 90 tablet, 0 Refills, Maintenance, 10/04/20 9:58:00 EDT, Tablet, [facility] #[id number], Partial fill upon patient request if the prescription is for a schedule II opioid drug., 164, cm, 10/04/20 9:47:00 EDT,... Start Date: 10/04/20 Status: OrderedPrenatal Plus Iron oral tablet 1 tablet, By Mouth, Daily, # 30 tablet, 11 Refills, Maintenance, 09/20/20 13:23:00 EDT, Tablet, [facility]acy #[id number], Partial fill upon patient [...]
--- OUTSIDE RECORDS SUMMARY | 2022-02-01 18:18 | XMS_ITS | Continuity of Care Document ---
:2002 Author Organization [facility] Address [address] [address]- Care Team Providers Name Role Phone Not on Staff, PCP Primary Care Physician Unavailable [facility] Date(s): 07/04/20 - 08/03/20 [facility] [address] [address] Allergies, Adverse Reactions, Alerts Substance Reaction [...]
--- OUTSIDE RECORDS SUMMARY | 2022-02-01 18:18 | XMS_ITS | Continuity of Care Document ---
:2002 Author Organization [facility] [employer] [facility] Address [address] [place] [address], [address] [place] [address]- Care Team Providers Name Role Phone Not on Staff, PCP Primary Care Physician Unavailable [facility]counter [facility] Date(s): 07/08/20 - 08/07/20 [facility] [employer] [address] [place] [address], [address] [place] [id number] Attending Physician: Dennys Wilkins Admitting Physician: Dennys [...]
--- OUTSIDE RECORDS SUMMARY | 2022-02-01 18:18 | XMS_ITS | Continuity of Care Document ---
:2002 Author Organization [facility] Address [address] [address] Care Team Providers Name Role Phone Not on Staff, PCP Primary Care Physician Unavailable [facility]counter [facility] Date(s): 09/19/20 - 10/19/20 [facility] [address] [place] [address] Allergies, Adverse Reactions, Alerts Substance Reaction Severity Status NKA Active Immunizations Given and Recorded Vaccine Date Status Refusal Reason influenza virus vaccine, inactivated 06/13/20 Given Medications ferrous sulfate 325 mg oral tablet 1 tablet = 325 mg, By Mouth, Daily, # 90 tablet, 0 Refills, Maintenance, 10/04/20 9:58:00 EDT, Tablet, [facility] #[id number], Partial fill upon patient request if the [...]
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
--- OUTSIDE RECORDS SUMMARY | 2022-02-01 18:18 | XMS_ITS | Continuity of Care Document ---
:2000 [facility] Address Unavailable , Care Team Providers Name Role Phone Not on Staff, PCP Primary Care Physician Unavailable Encounter [facility] [place] Date(s): 01/20/21 - 02/19/21 [facility] Allergies, Adverse Reactions, Alerts Substance Reaction Severity Status NKA Active Immunizations Given and Recorded Vaccine Date Status Refusal Reason influenza virus vaccine, inactivated 06/13/20 Given Medications ferrous sulfate 325 mg oral tablet 1 tablet = 325 mg, By Mouth, Daily, # 90 tablet, 0 Refills, Maintenance, 10/04/20 9:58:00 EDT, Tablet, [facility] #[id number], Partial fill upon patient request if the prescription is for a schedule II opioid drug., 164, cm, 10/04/20 9:47:00 EDT,... Start Date: 10/04/20 Status: OrderedPrenatal Plus Iron oral tablet 1 tablet, By Mouth, Daily, # 30 tablet, 11 Refills, Maintenance, 09/20/20 13:23:00 EDT, Tablet, [facility]/pharmacy #[id number], Partial fill upon patient [...]
--- OUTSIDE RECORDS SUMMARY | 2022-02-01 18:18 | XMS_ITS | Continuity of Care Document ---
:2000 Author Organization [facility] Address [address] [phone]- Care Team Providers Name Role Phone Not on Staff, PCP Primary Care Physician Unavailable Encounter [facility] Date(s): 09/01/20 - 11/26/20 [facility] [address] [place] [id number] Attending Physician: Not on Staff, Attending [...] 0 Refills, Maintenance, 10/04/20 9:58:00 EDT, Tablet, [email or web address] #[id number], Partial fill upon patient request if the prescription is for a schedule II opioid drug., 164, cm, 10/04/20 9:47:00 EDT,... Start Date: 10/04/20 Status: OrderedPrenatal Plus Iron oral tablet 1 tablet, By Mouth, Daily, # 30 tablet, 11 Refills, Maintenance, 09/20/20 13:23:00 EDT, Tablet, [facility]/pharmacy #[id number], Partial fill upon patient request [...]
--- OUTSIDE RECORDS SUMMARY | 2022-02-01 18:18 | XMS_ITS | Continuity of Care Document ---
:2000 Author Organization [facility] Address [address] [address]- Care Team Providers Name Role Phone Not on Staff, PCP Primary Care Physician Unavailable Encounter [facility] Date(s): 09/01/20 - 11/12/20 [facility] [address] [place] [id number] Attending Physician: Not on Staff, Attending [...] 0 Refills, Maintenance, 10/04/20 9:58:00 EDT, Tablet, [facility] #[id number], Partial fill upon patient request if the [...]
--- OUTSIDE RECORDS SUMMARY | 2022-02-01 18:18 | XMS_ITS | Continuity of Care Document ---
:2002 Author Organization [facility] Address [address] [address]- Care Team Providers Name Role Phone Not on Staff, PCP Primary Care Physician Unavailable Encounter [facility] Date(s): 08/02/20 - 09/01/20 [facility] [address] [id number] Allergies, Adverse Reactions, Alerts Substance Reaction [...]
--- OUTSIDE RECORDS SUMMARY | 2022-02-01 18:18 | XMS_ITS | Continuity of Care Document ---
:2002 Author Organization [facility] Address [address] [place] [phone]- Care Team Providers Name Role Phone Not on Staff, PCP Primary Care Physician Unavailable Encounter [facility] Date(s): 08/02/20 - 09/25/20 [facility] [address] [place] [id number] Attending Physician: Not on Staff, Attending MD Referring Physician: Not on Staff, Referring [...]
--- OUTSIDE RECORDS SUMMARY | 2022-02-01 18:18 | XMS_ITS | Continuity of Care Document ---
:2000 Author [facility] Address Unavailable , Care Team Providers Name Role Phone Not on Staff, PCP Primary Care Physician Unavailable [place] [facility] [place] [facility] Attending Physician: Not on Staff, Attending [...] 0 Refills, Maintenance, 10/04/20 9:58:00 EDT, Tablet, [facility] #[id number], Partial fill upon patient request if the prescription is for a schedule II opioid drug., 164, cm, 10/04/20 9:47:00 EDT,... Start Date: 10/04/20 Status: OrderedPrenatal Plus Iron oral tablet 1 tablet, By Mouth, Daily, # 30 tablet, 11 Refills, Maintenance, 09/20/20 13:23:00 EDT, Tablet, [facility]/pharmacy #[id number], Partial fill upon patient request if [...]
--- OUTSIDE RECORDS SUMMARY | 2022-02-01 18:18 | XMS_ITS | Continuity of Care Document ---
:2000 Author Organization [facility] Address Unavailable , Care Team Providers Name Role Phone Not on Staff, PCP Primary Care Physician Unavailable Encounter [facility] Date([facility]): [facility]27[facility]21 [facility] Allergies, Adverse Reactions, Alerts No Known Allergies Immunizations Given and Recorded Vaccine Date Status Refusal Reason influenza virus vaccine, inactivated 06/13/20 Given Problem List Condition Effective Dates Status Health Status Informant Anemia in (Confirmed) Active Intrauterine in Active teenager(Confirmed) Social History Social History Type Response Smoking Status Never (less than 100 in life time) entered on: 04/05/20 Sex
[2022-02-01] MEDS: metHOTREXate sodium 125 MG/5 ML SYRINGE 84 MG IM (19:01)
== END 2022-02-01 20:41 | disposition home or self-care (01) ==
PROVIDERS: Physician Assistant; Emergency Provider Student in an Organized Health Care Education/Training Program
DX: O00.90 Unspecified ectopic pregnancy without intrauterine pregnancy (principal); Z3A.01 Less than 8 weeks gestation of pregnancy
CPT/HCPCS: 36415; 80048; 80076; 85025; 96372; 99284; J9250

== ENCOUNTER 2022-02-04 15:57 | Outpatient (REF) | payer MEDICAID, SELFPAY ==
[2022-02-04 16:46] LABS: HCG Quantitative 224 mIU/mL
== END 2022-02-04 15:58 | disposition home or self-care (01) ==
LOC: HO.LAB 15:57
PROVIDERS: PCP Obstetrics & Gynecology; Visit Provider Obstetrics & Gynecology
DX: O00.90 Unspecified ectopic pregnancy without intrauterine pregnancy (principal)
CPT/HCPCS: 36415; 84702

== ENCOUNTER 2022-02-07 13:58 | Outpatient (REF) | payer MEDICAID, SELFPAY ==
[2022-02-07 14:58] LABS: HCG Quantitative 62 mIU/mL
== END 2022-02-07 13:59 | disposition home or self-care (01) ==
LOC: HO.LAB 13:58
PROVIDERS: Visit Provider Obstetrics & Gynecology
DX: O00.90 Unspecified ectopic pregnancy without intrauterine pregnancy (principal)
CPT/HCPCS: 36415; 84702; 99212